=== PATIENT | female | born 1965 | race Caucasian/White ===

== ENCOUNTER → 2016-12-15 | Outpatient (CLI) | payer BC ==
[~2016-12-15] MED LIST: ALBUAER19 INH; MONT1TAB5 PO
[2016-12-15 17:50] LABS: URINE APPEARANCE CLEAR (CLEAR); URINE BILIRUBIN NEG (NEG); URINE COLOR YELLOW; URINE NITRITE NEG (NEG); URINE SPECIFIC GRAVITY 1.013 (1.000-1.030); UROBILINOGEN NEG (NEG)
[2016-12-15 17:52] LABS: MANUAL MICROSCOPIC REQUIRED? NO; REVIEW REQ? NO
== END | disposition home or self-care (01) ==
LOC: C.LAB1850 16:14
PROVIDERS: ATTEND Internal Medicine
DX: N39.0 Urinary tract infection, site not specified (principal)

== ENCOUNTER → 2017-07-11 | Outpatient (CLI) | payer BC ==
[2017-07-11 14:20] LABS: BLOOD UREA NITROGEN 15 mg/dl (7-18); BUN/CREATININE RATIO 22.6 (10-20); CALCIUM 8.5 mg/dl (8.5-10.1); CARBON DIOXIDE 27 mmol/L (21-32); CHLORIDE 108 mmol/L (98-107); CHOLESTEROL 150 mg/dl (0-200); CREATININE 0.66 mg/dl (0.60-1.20); GLUCOSE 94 mg/dl (70-99); POTASSIUM 4.5 mmol/L (3.5-5.1); SODIUM 140 mmol/L (136-145)
[2017-07-11 14:31] LABS: CHOLESTEROL/HDL RATIO 2.5; HDL CHOLESTEROL 61 mg/dl; LDL CHOLESTEROL CALCULATED 75 mg/dl; TRIGLYCERIDES 72 mg/dl (0-150); VERY LOW DENSITY LIPOPROT CALC 14 mg/dl
== END | disposition home or self-care (01) ==
LOC: C.LABBC 09:26
PROVIDERS: ATTEND Physician Assistant Medical
DX: Z11.59 Encounter for screening for other viral diseases (principal); Z00.00 Encounter for general adult medical examination without abnormal findings

== ENCOUNTER → 2017-10-20 | Outpatient (CLI) | payer BC ==
--- NOTE | 2017-10-23 15:18 | MAMMOGRAPHY REPORT ---
BILATERAL DIGITAL SCREENING MAMMOGRAM TOMOSYNTHESIS WITH CAD: 10/20/2017 CLINICAL HISTORY: Routine screening. Patient has no complaints. TECHNIQUE: Breast tomosynthesis in addition to standard 2D mammography was performed. Current study was also evaluated with a Computer Aided Detection (CAD) system. COMPARISON: Comparison is made to exams dated: 04/29/2015 mammogram, 04/17/2015 mammogram, 10/08/2013 mammogram - [facility], and 05/14/2009. BREAST COMPOSITION: The tissue of both breasts is heterogeneously dense, which may obscure small mas ses. FINDINGS: There is a 9 mm asymmetry seen within the left superior breast middle depth on the MLO vie w only, not seen on the cc view but thought to project a laterally based on the tomosynthesis localiz er bar, for which spot compression tomosynthesis views and possible breast ultrasound are recommended for further evaluation. The remainder of both breasts are stable compared to prior exams, without suspicious masses, calcific ations, or areas of architectural distortion noted. Benign-appearing right breast calcifications are not significantly changed. IMPRESSION: ACR BI-RADS CATEGORY 0: INCOMPLETE EVALUATION: NEED ADDITIONAL IMAGING EVALUATION Left superior breast asymmetry, for which additional imaging evaluation is recommended. The patient will be called to schedule an appointment. Approximately 10% of breast cancers are not detected with mammography. A negative mammographic report should not delay biopsy if a clinically suggestive mass is present. Judy Argueta M.D. /:10/20/2017 15:50:57 Masking Machine Feeder: Caryn VANEGAS(Leonard)(Teena)([place]), [facility] letter sent: Addl Imaging 0 BI-RADS Code: ACR BI-RADS Category 0: Incomplete Evaluation: Need Additional Imaging Evaluation
== END | disposition home or self-care (01) ==
LOC: C.MAMM 14:18
PROVIDERS: ATTEND Physician Assistant Medical
DX: Z12.31 Encounter for screening mammogram for malignant neoplasm of breast (principal); N64.9 Disorder of breast, unspecified

== ENCOUNTER → 2017-11-01 | Outpatient (CLI) | payer BC ==
--- NOTE | 2017-11-01 16:02 | MAMMOGRAPHY REPORT ---
UNILATERAL LEFT DIGITAL DIAGNOSTIC MAMMOGRAM TOMOSYNTHESIS AND TARGETED LEFT ULTRASOUND: 11/01/2017 CLINICAL HISTORY: 49-year-old woman called back from screening mammography for a 9 mm asymmetry in th e middle one third of the left breast, slightly superior to the posterior nipple line on the MLO view . TECHNIQUE: Spot compression CC and MLO tomosynthesis images were obtained of the left breast. COMPARISON: Comparison is made to exams dated: 04/29/2015 mammogram, 10/20/2017 mammogram, 04/29/2015 u ltrasound, 04/17/2015 mammogram, 10/08/2013 ultrasound, and 10/08/2013 mammogram - [facility]. BREAST COMPOSITION: The tissue of the left breast is extremely dense, which lowers the sensitivity o f mammography. FINDINGS: The several mental spot compression tomosynthesis views of the left breast demonstrate effa cement of the 9 mm nodular asymmetry in the middle one third of the left breast, particularly on the spot compression MLO view. No definite mass, focal area of architectural distortion or asymmetry is identified in the left breast spot compression MLO or CC projections. Further evaluation with ultras ound was performed Targeted ultrasound was performed throughout the superior and retroareolar left breast. There are 2 adjacent benign anechoic cysts in the 10:00 left breast, 1 cm from the nipple, measuring 4.3 x 3.0 x 4.7 mm, and another anechoic cyst in the 11:00 left breast, 1 cm from the nipple, measuring 4.1 x 3.2 x 2.8 mm. There is an oval parallel circumscribed isoechoic solid appearing mass in the 3:00 left b reast, 3 cm from the nipple, measuring 4.1 x 1.5 x 3.6 mm. This could represent a benign fibroadenom a or possibly a lymph node. Given that it does not fit the criteria for benign simple cyst, a short interval follow-up targeted left breast ultrasound in the 3:00 axis is recommended in 6 months to ens ure stability. IMPRESSION: ACR-BI-RADS CATEGORY 3: PROBABLY BENIGN, TARGETED ULTRASOUND ACR-BI-RADS CATEGORY 3: PRO BABLY BENIGN 1. Supplemental tomosynthesis images of the left breast demonstrate effacement of the 9 mm nodular a symmetry which most likely represented normal overlapping fibrolinear glandular tissue. No suspiciou s sonographic correlate was identified. 2. Incidentally seen is a tiny 3.6 x 4.1 mm isoechoic benign-appearing circumscribed solid appearing mass in the 3:00 left breast on ultrasound for which a short interval follow-up targeted left breast ultrasound is recommended to ensure stability in 6 months. Left tomosynthesis mammography should al so be performed at that time to ensure effacement of the 9 mm asymmetry as seen on screening mammogra phy. These results and recommendations were discussed with the patient at the time of the exam. She marie tively scheduled the follow-up appointment prior to leaving our department. Approximately 10% of breast cancers are not detected with mammography. A negative mammographic report should not delay biopsy if a clinically suggestive mass is present. Jo Hathaway M.D. ay/:11/01/2017 09:15:09 Rn Obgyn: Francia VÁZQUEZ)(Teena), [facility] letter sent: Follow Up Recommended 3 BI-RADS Code: ACR-BI-RADS Category 3: Probably Benign Ultrasound BI-RADS: ACR-BI-RADS Category 3: Pr obably Benign
== END | disposition home or self-care (01) ==
LOC: C.MAMM 07:54
PROVIDERS: ATTEND Physician Assistant Medical
DX: N64.89 Other specified disorders of breast (principal); N63.20 Unspecified lump in the left breast, unspecified quadrant